=== PATIENT | male | born 1950 | race Caucasian/White ===

== ENCOUNTER → 2016-12-27 | Outpatient (CLI) | payer MEDICARE, BC ==
[~2016-12-27] MED LIST: ACET-2723 PO; ASPI325T PO; ASPI81TA2 PO; ATOR80TA76 PO; BETA1TAB20 PO; CARB15DR3 BOTH EYES; CYAN10009 PO; DOCU-132 PO; GLUC1TAB20 PO; LEVO125T11 PO; METO25TA6 PO; NITR0.4T39 SL; OXYM15MI2 NS; POLY17PO6 PO; PRED10DR15 BOTH EYES; PROP10DR2 OP; TAMS0.4C47 PO
--- NOTE | 2016-12-27 14:08 | DI ---
INDICATION: ITS.REASON: R07.2 Precordial pain PROCEDURE: CHEST 2-VIEWS UPRIGHT (PA \T\ LAT) Encounter: Initial COMPARISON: None FINDINGS: The lungs are clear without evidence of focal abnormal airspace opacity. There is no pleural effusion or pneumothorax. Poststernotomy changes are present. Prior CABG. The heart size, mediastinal contours and pulmonary vascularity are within normal limits. Mild degenerative change in the spine. IMPRESSION: No acute cardiopulmonary disease. .
== END ==
LOC: IMA 13:40
PROVIDERS: ATTEND Internal Medicine Cardiovascular Disease
DX: R07.2 Precordial pain (principal); Z95.1 Presence of aortocoronary bypass graft